=== PATIENT | female | born 1960 | race Caucasian/White ===

== ENCOUNTER 2017-09-04 07:13 | Day surgery (SDC) | payer OTHER ==
[~2017-09-04] VITALS: Ht 168.9 cm; Wt 90.1 kg
[~2017-09-04 07:13] MED LIST: ACET-4192 PO; ACET-787 PO; ALLO100T21 PO; ALPR1TAB2 PO; AMLO-27 PO; AMLO10TA PO; CALC-209 PO; CINA90TA PO; LOM2.5 PO; VITA1TAB44 PO; ZOLP10TA1 PO
[2017-09-04 08:12] LABS: BASOPHILS # (AUTO) 0.2 K/uL (0.00-0.22); BASOPHILS % (AUTO) 4.3 % (0.0-2.0); EOSINOPHILS # (AUTO) 0.3 K/uL (0-0.4); EOSINOPHILS % (AUTO) 6.5 % (0.0-4.0); HEMATOCRIT 34.2 % (36-48); HEMOGLOBIN 10.9 g/dL (12.0-16.0); LYMPHOCYTES # (AUTO) 1.4 K/uL (2.5-16.5); LYMPHOCYTES % (AUTO) 28.2 % (20.5-51.1); MEAN CORPUSCULAR HEMOGLOBIN 31 pg (27-31); MEAN CORPUSCULAR HGB CONC 32 g/dL (33-37); MEAN CORPUSCULAR VOLUME 98 fL (80-94); MONOCYTES # (AUTO) 0.4 K/uL (0.8-1.0); MONOCYTES % (AUTO) 8.2 % (1.7-9.3); NEUTROPHILS # (AUTO) 2.6 K/uL (1.8-7.7); NEUTROPHILS % (AUTO) 52.8 % (42.2-75.2); PLATELET COUNT (AUTO) 185 K/uL (140-450); RED BLOOD CELL COUNT(AUTO) 3.51 MIL/uL (4.20-5.40); RED CELL DISTRIBUTION WIDTH 16.7 % (11.6-13.7); WHITE BLOOD COUNT (AUTO) 4.9 K/uL (4.8-10.8)
[2017-09-04 08:43] LABS: ANION GAP 13.7 (8-16); CARBON DIOXIDE 31.5 mmol/L (21-32); POTASSIUM 4.2 mmol/L (3.5-5.1)
[2017-09-04 08:50] LABS: ALBUMIN 3.5 g/dL (3.4-5.0); TOTAL BILIRUBIN 0.5 mg/dL (0.0-1.0)
[2017-09-04 08:52] LABS: CREATININE 7.3 mg/dL (0.6-1.3)
[2017-09-04] MEDS ORDERED: PROPOFOL 200 MG/20 ML VIAL IV ONE (10:36)
[2017-09-04] MEDS ORDERED: BLOOD GLUCOSE MONITORING 1 DEV DEV FS SCH (11:40)
[2017-09-04] MEDS ORDERED: HYDROmorphone 1 MG/ML AMP IVP PRN (11:40)
[2017-09-04] MEDS ORDERED: ONDANSETRON 4 MG/2 ML VIAL IVP PRN (11:40)
[2017-09-04] MEDS ORDERED: DEXTROSE 50% 50 ML SYR IVP ONE ×2 (12:18→12:20)
== END 2017-09-04 13:33 | disposition home or self-care (01) ==
LOC: MDS 07:13 → MMU 07:16 → MDS 13:33
PROVIDERS: ATTEND Internal Medicine Gastroenterology
DX: D12.3 Benign neoplasm of transverse colon (principal); D12.2 Benign neoplasm of ascending colon; E11.22 Type 2 diabetes mellitus with diabetic chronic kidney disease; I13.2 Hypertensive heart and chronic kidney disease with heart failure and with stage 5 chronic kidney disease, or end stage renal disease; I50.9 Heart failure, unspecified; N18.6 End stage renal disease; E66.09 Other obesity due to excess calories; F32.9 Major depressive disorder, single episode, unspecified; Z68.31 Body mass index [BMI] 31.0-31.9, adult; L40.50 Arthropathic psoriasis, unspecified; Z98.890 Other specified postprocedural states; Z86.010 Personal history of colon polyps; Z80.0 Family history of malignant neoplasm of digestive organs; Z87.891 Personal history of nicotine dependence; Z99.2 Dependence on renal dialysis; Z86.2 Personal history of diseases of the blood and blood-forming organs and certain disorders involving the immune mechanism
CPT/HCPCS: 36415; 45385; 71010; 80053; 82948; 85025; J2704; J7030; J7120; Q0092